=== PATIENT | female | born 1980 | race African-American/Black ===

== ENCOUNTER 2017-02-01 10:33 | Emergency (ER) | payer OTHER ==
[~2017-02-01] VITALS: Ht 167.6 cm; Wt 73.5 kg
[~2017-02-01 10:33] MED LIST: IBUP800T24 PO; PENI500T2 PO; TRAM50TA2 PO
[2017-02-01 11:39] LABS: Urine Bilirubin Negative (Negative); Urine Blood 1+ /uL (Negative); Urine Color Yellow (Yellow); Urine Glucose Normal (Normal); Urine Ketone Negative (Negative); Urine Nitrite Negative (Negative); Urine RBC 2 /hpf (0 - 4); Urine Squamous Epithelial Cell FEW /hpf (<5); Urine Urobilinogen Normal (Negative); Urine pH 5.5 (5.0-8.0)
[2017-02-01 12:03] LABS: Basophils # (auto) 0 uL; Basophils % (auto) 0.8 % (0.0-2.0); DEFINITIVE VIEW TRANSMISSION; Eosinophils # (auto) 0 uL; Eosinophils % (auto) 0.8 % (0.0-7.0); Hematocrit 27.7 % (36.0-46.0); Hemoglobin 8.6 g/dL (12.2-16.2); Lymphocytes # (auto) 1.3 uL; Lymphocytes % (auto) 27.5 % (10.0-50.0); Mean Corpuscular Hemoglobin 20.7 pg (28.0-32.0); Mean Corpuscular Hgb Conc. 30.9 g/dL (32.0-36.0); Mean Platelet Volume 7.8 fL (7.4-10.4); Monocytes # (auto) 0.4 uL; Monocytes % (auto) 8.4 % (0.0-12.0); Neutrophils % (auto) 62.5 % (37.0-80.0); Platelet Count (auto) 573 10^3/uL (140-450); Red Cell Distribution Width 18.7 % (11.6-16.0); White Blood Cell 4.9 10^3/uL (4.4-10.8)
[2017-02-01 12:22] LABS: Albumin 3.9 g/dL (3.4-5.0); BUN/Creatinine Ratio 11.1; Bilirubin, Total 0.3 mg/dL (0.2-1.0); Calcium 8.8 mg/dL (8.5-10.1); Potassium 3.6 mmol/L (3.5-5.1); Total Protein 7.6 g/dL (6.4-8.2)
[2017-02-01 14:15] VITALS: BP 109/68
== END 2017-02-01 14:17 | disposition home or self-care (01) ==
LOC: ER 10:35
DX: R10.31 Right lower quadrant pain (principal); Z98.51 Tubal ligation status; Z79.899 Other long term (current) drug therapy
CPT/HCPCS: 36415; 74176; 80053; 81001; 81025; 84702; 85025

== ENCOUNTER 2017-04-29 17:01 | Emergency (ER) | payer OTHER ==
[~2017-04-29] VITALS: Ht 167.6 cm; Wt 69.4 kg
[2017-04-29 17:13] VITALS: BP 155/108
== END 2017-04-29 17:59 | disposition home or self-care (01) ==
LOC: ER 17:04
DX: S00.83XA Contusion of other part of head, initial encounter (principal); S10.93XA Contusion of unspecified part of neck, initial encounter; Z79.899 Other long term (current) drug therapy; W22.8XXA Striking against or struck by other objects, initial encounter; Y93.89 Activity, other specified; Y92.89 Other specified places as the place of occurrence of the external cause; Y99.8 Other external cause status

== ENCOUNTER 2017-12-27 07:24 | Inpatient (IN) | payer MEDICAID, OTHER ==
[2017-12-27] VITALS (7 sets, daily range): BP systolic 104–115; BP diastolic 57–73
[~2017-12-27] VITALS: Ht 167.6 cm; Wt 72.4 kg
[2017-12-27 08:59] LABS: Monocytes # (auto) 0.3 uL
[2017-12-27 09:01] LABS: Lymphocytes # (auto) 1.1 uL; Nucleated Red Blood Cells % 0.1 %
[2017-12-27 09:06] LABS: Basophils # (auto) 0.1 uL; Eosinophils # (auto) 0 uL
[2017-12-27 09:08] LABS: Basophils % (auto) 1.9 % (0.0-2.0); Eosinophils % (auto) 1.4 % (0.0-7.0); Hematocrit 23.3 % (36.0-46.0); Mean Corpuscular Hemoglobin 17.7 pg (28.0-32.0); Mean Corpuscular Hgb Conc. 29.5 g/dL (32.0-36.0); Monocytes % (auto) 9.7 % (0.0-12.0); Neutrophils # (auto) 1.5 uL; Platelet Count (auto) 478 10^3/uL (140-450); Red Blood Cells 3.88 10^6/uL (4.0-5.20); Red Cell Distribution Width 18.6 % (11.8-14.3)
[2017-12-27 09:12] LABS: Hemoglobin 6.9 g/dL (12.2-16.2)
[2017-12-27 09:15] LABS: Albumin 3.8 g/dL (3.4-5.0); BUN/Creatinine Ratio 12.3; Bilirubin, Total 0.4 mg/dL (0.2-1.0); Calcium 8.9 mg/dL (8.5-10.1); Magnesium 2.4 mg/dL (1.6-2.6); Potassium 3.8 mmol/L (3.5-5.1); Total Protein 7.4 g/dL (6.4-8.2)
[2017-12-27 09:51] LABS: Urine Bacteria FEW /hpf (None Seen); Urine Blood 1+ /uL (Negative); Urine Mucus FEW (None Seen); Urine Specific Gravity 1.024 (1.001-1.035); Urine WBC 2 /hpf (0 - 5)
[2017-12-27] MEDS ORDERED: SODIUM CHLORIDE 0.9% 1,000 ML IV ONE (11:20)
[2017-12-27] MEDS ORDERED: KETOROLAC TROMETH 30 MG/ML 1ML VIAL IV ONE (11:30)
[2017-12-27] MEDS: PROMETHAZINE HCL 25 MG/ML 1ML IV PRN ×4 (12:09→20:48)
[2017-12-27] MEDS ORDERED: IOHEXOL 300 MG/ML 100ML BOTTLE IJ ONE (12:38)
[2017-12-27] MEDS ORDERED: cefTRIAXone 1GM/10ml IVPUSH 10 ML IV ONE ×2 (13:30→14:30)
[2017-12-27] MEDS ORDERED: ACETAMINOPHEN 500 MG TAB PO PRN (14:30)
[2017-12-27] MEDS ORDERED: LORazepam 0.5 MG TAB PO PRN (14:30)
[2017-12-27] MEDS ORDERED: TEMAZEPAM 15 MG CAP PO PRN (14:30)
[2017-12-27] MEDS ORDERED: NITROGLYCERIN 0.4 MG SL TAB SL PRN (14:30)
[2017-12-27] MEDS ORDERED: MORPHINE SULFATE 4 MG/ML SYR/VIAL IV PRN (14:30)
[2017-12-27] MEDS: SODIUM CHLORIDE 0.9% 1,000 ML IV SCH (15:35)
[2017-12-27] MEDS: MORPHINE SULFATE 4 MG/ML SYR/VIAL IV PRN ×2 (15:54→20:41)
[2017-12-27 17:03] LABS: Alcohol, Urine < 3.0 mg/dL (0-5); Amphetamine Screen, Urine NEGATIVE (NEGATIVE); Barbiturate Scree,Urine NEGATIVE (NEGATIVE); Benzodiazephine Screen, Urine NEGATIVE (NEGATIVE); Cannabinoid Screen, Urine NEGATIVE (NEGATIVE); Cocaine Screen, Urine NEGATIVE (NEGATIVE); Opiate Scree,Urine NEGATIVE (NEGATIVE); Phencyclidine Screen, Urine NEGATIVE (NEGATIVE)
[2017-12-27] MEDS: HYDROcodone-ACET 5/325MG TAB PO PRN (20:48)
[2017-12-27 21:52] LABS: Hematocrit 29.2 % (36.0-46.0)
[2017-12-27 22:10] LABS: INR 1.04 (0.9-1.15); Prothrombin Time 11.3 sec (9.37-12.3)
[2017-12-27] MEDS ORDERED: LORA-654 PO (23:59)
[2017-12-28] MEDS: SODIUM CHLORIDE 0.9% 1,000 ML IV SCH ×3 (01:18→20:18)
[2017-12-28 01:42] LABS: Hemoglobin 8.5 g/dL (12.2-16.2)
[2017-12-28 01:43] LABS: Hematocrit 28.1 % (36.0-46.0)
[2017-12-28 05:00] VITALS: BP 104/64
[2017-12-28] MEDS: HYDROcodone-ACET 5/325MG TAB PO PRN ×4 (05:23→23:50)
[2017-12-28] MEDS: PROMETHAZINE HCL 25 MG/ML 1ML IV PRN (05:24)
[2017-12-28 05:49] LABS: Basophils # (auto) 0 uL; Eosinophils # (auto) 0.1 uL; Mean Corpuscular Hemoglobin 20.7 pg (28.0-32.0); Monocytes # (auto) 0.4 uL
[2017-12-28 05:55] LABS: Basophils % (auto) 0.6 % (0.0-2.0); Eosinophils % (auto) 1.4 % (0.0-7.0); Hematocrit 27.6 % (36.0-46.0); Hemoglobin 8.5 g/dL (12.2-16.2); Lymphocytes # (auto) 2.1 uL; Lymphocytes % (auto) 51.1 % (10.0-50.0); Mean Corpuscular Hgb Conc. 30.7 g/dL (32.0-36.0); Mean Corpuscular Volume 67.4 fL (80.0-100.0); Monocytes % (auto) 9.3 % (0.0-12.0); Neutrophils # (auto) 1.6 uL; Neutrophils % (auto) 37.6 % (37.0-80.0); Nucleated Red Blood Cells % 0.1 %; Platelet Count (auto) 364 10^3/uL (140-450); Red Blood Cells 4.09 10^6/uL (4.0-5.20); White Blood Cell 4.1 10^3/uL (4.4-10.8)
[2017-12-28 06:02] LABS: Red Cell Distribution Width 25.3 % (11.8-14.3)
[2017-12-28 06:15] LABS: Albumin 3.1 g/dL (3.4-5.0); BUN/Creatinine Ratio 6.7; Bilirubin, Total 0.9 mg/dL (0.2-1.0); Potassium 3.7 mmol/L (3.5-5.1)
[2017-12-28 06:16] LABS: Cholesterol 96 mg/dL (< 200); HDL Cholesterol 45 mg/dL (40-59); LDL Cholesterol 56 mg/dL (< 100); Triglycerides 39 mg/dL (< 150)
[2017-12-28 09:00] VITALS: BP 113/72
[2017-12-28] MEDS: PANTOPRAZOLE 40 MG TAB PO SCH (10:08)
[2017-12-28] MEDS: cefTRIAXone 1GM/10ml IVPUSH 10 ML IV SCH (10:09)
[2017-12-28 13:00] VITALS: BP 109/68
[2017-12-28] MEDS ORDERED: GOLYTELY 4L KIT PO ONE (14:15)
[2017-12-28 22:00] VITALS: BP 112/73
[2017-12-29 05:00] VITALS: BP 99/59
[2017-12-29] MEDS: SODIUM CHLORIDE 0.9% 1,000 ML IV SCH (05:13)
[2017-12-29] MEDS: HYDROcodone-ACET 5/325MG TAB PO PRN ×4 (05:38→23:40)
[2017-12-29 05:57] LABS: Basophils # (auto) 0 uL; Eosinophils # (auto) 0 uL; Hemoglobin 8.5 g/dL (12.2-16.2); Lymphocytes # (auto) 1.6 uL; Neutrophils # (auto) 2.7 uL
[2017-12-29] MEDS ORDERED: GOLYTELY 4L KIT PO ONE (06:00)
[2017-12-29 06:05] LABS: Basophils % (auto) 0.6 % (0.0-2.0); Hematocrit 27.7 % (36.0-46.0); Lymphocytes % (auto) 32.6 % (10.0-50.0); Mean Corpuscular Hemoglobin 20.5 pg (28.0-32.0); Mean Corpuscular Hgb Conc. 30.6 g/dL (32.0-36.0); Monocytes # (auto) 0.5 uL; Monocytes % (auto) 10.6 % (0.0-12.0); Neutrophils % (auto) 55.2 % (37.0-80.0); Nucleated Red Blood Cells % 0.2 %; Platelet Count (auto) 380 10^3/uL (140-450); Red Blood Cells 4.14 10^6/uL (4.0-5.20); White Blood Cell 4.9 10^3/uL (4.4-10.8)
[2017-12-29 06:13] LABS: Calcium 8.2 mg/dL (8.5-10.1); Potassium 3.3 mmol/L (3.5-5.1)
[2017-12-29 06:18] LABS: Albumin 3.1 g/dL (3.4-5.0); BUN/Creatinine Ratio 5.4; Bilirubin, Total 0.5 mg/dL (0.2-1.0); Red Cell Distribution Width 25.7 % (11.8-14.3); Total Protein 6.3 g/dL (6.4-8.2)
[2017-12-29 09:00] VITALS: BP 133/80
[2017-12-29] MEDS: PANTOPRAZOLE 40 MG TAB PO SCH ×2 (09:11→21:18)
[2017-12-29] MEDS ORDERED: PANTOPRAZOLE 40 MG/10 ML VIAL IV ONE (09:15)
[2017-12-29] MEDS: cefTRIAXone 1GM/10ml IVPUSH 10 ML IV SCH (09:38)
[2017-12-29] MEDS ORDERED: diphenhdrAMINE HCL 50 MG/1 ML VL ONE (10:11)
[2017-12-29] MEDS ORDERED: NALOXONE HCL 0.4 MG/ML VIAL ONE (10:11)
[2017-12-29] MEDS ORDERED: FLUMAZENIL 0.1 MG/ML INJ 10ML MDV IV ONE (10:11)
[2017-12-29] MEDS ORDERED: LIDOCAINE VISCOUS 2% 15ML UD ONE (10:11)
[2017-12-29] MEDS ORDERED: SODIUM CHLORIDE LOCK 10 ML ONE (10:12)
[2017-12-29] MEDS: POTASSIUM CHL 20MEQ/100ML 100 ML IV SCH ×2 (10:34→14:42)
[2017-12-29] MEDS: fentaNYL CITRATE 100 MCG/2 ML VL ONE ×2 (11:34→11:38)
[2017-12-29] MEDS: MIDAZOLAM HCL 5 MG/ML-1ML VIAL ONE ×3 (11:34→11:47)
[2017-12-29] MEDS ORDERED: fentaNYL CITRATE 100 MCG/2 ML VL ONE (11:49)
[2017-12-29] MEDS ORDERED: MIDAZOLAM HCL 5 MG/ML-1ML VIAL ONE (11:49)
[2017-12-29] MEDS ORDERED: HYOSCYAMINE SULF 0.125 MG TAB PO PRN (12:15)
[2017-12-29] MEDS: PROMETHAZINE HCL 25 MG/ML 1ML IV PRN (14:43)
[2017-12-29] MEDS: D5W/SOD CHLO 0.9% 1,000 ML IV SCH (15:08)
[2017-12-29 17:00] VITALS: BP 124/89
[2017-12-29 22:10] VITALS: BP 90/47
[2017-12-30] MEDS: D5W/SOD CHLO 0.9% 1,000 ML IV SCH ×3 (05:23→21:00)
[2017-12-30 05:56] VITALS: BP 91/58
[2017-12-30 06:49] LABS: Basophils # (auto) 0 uL; Eosinophils # (auto) 0 uL; Hemoglobin 8.3 g/dL (12.2-16.2); Lymphocytes # (auto) 1.6 uL; Monocytes # (auto) 0.7 uL; Monocytes % (auto) 8.4 % (0.0-12.0); White Blood Cell 8.8 10^3/uL (4.4-10.8)
[2017-12-30 06:51] LABS: Basophils % (auto) 0.4 % (0.0-2.0); Eosinophils % (auto) 0.5 % (0.0-7.0); Hematocrit 26.1 % (36.0-46.0); Lymphocytes % (auto) 18.5 % (10.0-50.0); Mean Corpuscular Hgb Conc. 31.8 g/dL (32.0-36.0); Neutrophils # (auto) 6.4 uL; Neutrophils % (auto) 72.2 % (37.0-80.0); Platelet Count (auto) 408 10^3/uL (140-450); Red Blood Cells 3.96 10^6/uL (4.0-5.20)
[2017-12-30 07:11] LABS: Red Cell Distribution Width 25.5 % (11.8-14.3)
[2017-12-30 07:19] LABS: BUN/Creatinine Ratio 11.3; Bilirubin, Total 0.4 mg/dL (0.2-1.0); Calcium 8.2 mg/dL (8.5-10.1); Potassium 3.3 mmol/L (3.5-5.1); Total Protein 6.2 g/dL (6.4-8.2)
[2017-12-30 08:20] VITALS: BP 91/58
[2017-12-30 09:07] VITALS: BP 104/63
[2017-12-30] MEDS: HYDROcodone-ACET 5/325MG TAB PO PRN ×2 (09:19→22:14)
[2017-12-30] MEDS: cefTRIAXone 1GM/10ml IVPUSH 10 ML IV SCH (09:19)
[2017-12-30] MEDS: PANTOPRAZOLE 40 MG TAB PO SCH ×2 (09:19→22:14)
[2017-12-30] MEDS ORDERED: POTASSIUM CHLORIDE 40 MEQ, LIDOCAINE 1% (LOCAL ANESTH.) 4 ML in SODIUM CHL 0.9% 100 ML IV ONE (10:00)
[2017-12-30] MEDS: SUCRALFATE 1 GM TAB PO SCH ×3 (11:30→22:14)
[2017-12-30 12:57] VITALS: BP 121/75
[2017-12-30] MEDS: POTASSIUM CHL 20MEQ/100ML 100 ML IV SCH ×2 (13:41→14:00)
[2017-12-30] MEDS ORDERED: POTASSIUM CHL 20MEQ/100ML 100 ML IV ONE (15:18)
[2017-12-30 17:00] VITALS: BP 112/72
[2017-12-30 22:00] VITALS: BP 118/74
[2017-12-31] MEDS: HYDROcodone-ACET 5/325MG TAB PO PRN (04:23)
[2017-12-31 05:00] VITALS: BP 103/58
[2017-12-31 05:48] LABS: Basophils # (auto) 0.1 uL; Hemoglobin 8.5 g/dL (12.2-16.2); Lymphocytes # (auto) 1.9 uL; Monocytes # (auto) 0.6 uL; Neutrophils # (auto) 2.5 uL; Nucleated Red Blood Cells % 0.2 %; White Blood Cell 5.1 10^3/uL (4.4-10.8)
[2017-12-31 05:49] LABS: Basophils % (auto) 1.1 % (0.0-2.0); Eosinophils # (auto) 0 uL; Eosinophils % (auto) 0.6 % (0.0-7.0); Hematocrit 27.4 % (36.0-46.0); Lymphocytes % (auto) 37.9 % (10.0-50.0); Mean Corpuscular Hemoglobin 20.9 pg (28.0-32.0); Mean Corpuscular Hgb Conc. 31.1 g/dL (32.0-36.0); Mean Corpuscular Volume 67.2 fL (80.0-100.0); Monocytes % (auto) 10.8 % (0.0-12.0); Neutrophils % (auto) 49.6 % (37.0-80.0); Platelet Count (auto) 392 10^3/uL (140-450); Red Blood Cells 4.07 10^6/uL (4.0-5.20)
[2017-12-31] MEDS: D5W/SOD CHLO 0.9% 1,000 ML IV SCH (05:55)
[2017-12-31 06:17] LABS: BUN/Creatinine Ratio 6.3; Bilirubin, Total 0.2 mg/dL (0.2-1.0); Calcium 8.2 mg/dL (8.5-10.1); Potassium 3.7 mmol/L (3.5-5.1); Total Protein 6.3 g/dL (6.4-8.2)
[2017-12-31] MEDS: SUCRALFATE 1 GM TAB PO SCH (06:34)
[2017-12-31] MEDS: PANTOPRAZOLE 40 MG TAB PO SCH (08:51)
[2017-12-31] MEDS: cefTRIAXone 1GM/10ml IVPUSH 10 ML IV SCH (08:51)
[2017-12-31 09:00] VITALS: BP 121/79
[2017-12-31 09:35] VITALS: BP 121/79
== END 2017-12-31 12:33 | disposition home or self-care (01) | DRG 463 ==
LOC: ER 07:24 → TELE 07:25 → TELE-WESTW 20:18
PROVIDERS: ADMIT Internal Medicine; ATTEND Internal Medicine
PROC: 30233N1 Transfusion of Nonautologous Red Blood Cells into Peripheral Vein, Percutaneous Approach (ICD-10-PCS; principal; 2017-12-27)
PROC: 0DB78ZX Excision of Stomach, Pylorus, Via Natural or Artificial Opening Endoscopic, Diagnostic (ICD-10-PCS; 2017-12-29)
PROC: 0DJD8ZZ Inspection of Lower Intestinal Tract, Via Natural or Artificial Opening Endoscopic (ICD-10-PCS; 2017-12-29)
PROC: 0DB98ZX Excision of Duodenum, Via Natural or Artificial Opening Endoscopic, Diagnostic (ICD-10-PCS; 2017-12-29 11:31)
DX: N39.0 Urinary tract infection, site not specified (principal); K29.71 Gastritis, unspecified, with bleeding; E44.0 Moderate protein-calorie malnutrition; K52.9 Noninfective gastroenteritis and colitis, unspecified; D25.9 Leiomyoma of uterus, unspecified; D50.0 Iron deficiency anemia secondary to blood loss (chronic); E78.5 Hyperlipidemia, unspecified; K46.9 Unspecified abdominal hernia without obstruction or gangrene; F41.9 Anxiety disorder, unspecified; D47.3 Essential (hemorrhagic) thrombocythemia; K64.8 Other hemorrhoids; Z80.0 Family history of malignant neoplasm of digestive organs; Z83.3 Family history of diabetes mellitus; Z98.51 Tubal ligation status
CPT/HCPCS: 36415; 36430; 43239; 45378; 71046; 74176; 76830; 76856; 80053; 80061; 80307; 81001; 81025; 82150; 82270; 83690; 83735; 84443; 85014; 85018; 85025; 85045; 85610; 85652; 86850; 86900; 86901; 86920; 87086; 87088; 87186; 96361; 96374; 96375; C9113; J1885; J2001; J2250; J3480; J7042